=== PATIENT | female | born 1955 | race Asian ===

== ENCOUNTER 2017-03-04 12:53 | Emergency (ER) | payer OTHER ==
[~2017-03-04] VITALS: Ht 152.4 cm; Wt 72.7 kg
[2017-03-04] MEDS ORDERED: FOLI-74 PO (13:01)
[2017-03-04] MEDS ORDERED: CYAN100099 PO (13:01)
[2017-03-04] MEDS ORDERED: METF850T2 PO (13:01)
[2017-03-04 13:07] LABS: GLUCOSE,POINT OF CARE 112 MG/DL (70-110)
[2017-03-04 14:41] VITALS: BP 147/95
== END 2017-03-04 15:41 | disposition home or self-care (01) ==
LOC: EMS 12:57
DX: Z02.1 Encounter for pre-employment examination (principal); E11.9 Type 2 diabetes mellitus without complications
CPT/HCPCS: 82962; 99283